=== PATIENT | female | born 1945 | race Caucasian/White ===

== ENCOUNTER 2016-12-21 16:20 | Emergency (ER) | payer BC ==
[2016-12-21 16:28] VITALS: BP 133/63
--- NOTE | 2017-01-15 15:21 | UC ---
Neha Jacob Rebecca, scribed for Karla Nam MD on 12/21/16 at 1800 . Upper Extremity HPI - HPI Summary HPI Summary: Pt is a 71 y/o F who presents to [facility] c/o RUE bruising s/p injury. 4-5 days ago she was gardening and fell, hitting her R forearm on either a big root or rock. Pain is currently moderate, ranked 7/10 and characterized as soreness. Sx aggravated and alleviated by nothing. Denies hip or abdominal pain. Reports she typically bruises easily and has since she was a teenager. Does not take blood thinners or Vitamin E, A or K. Confirms that in the past year she has had an extensive work up with her PCP including a stress test and thyroid scan. Has an appt with her PCP on Saturday (3 days from today). - History of Current Complaint Chief Complaint: UCUpperExtremity Stated Complaint: RT ARM INJURY FROM FALL Time Seen by Provider: 12/21/16 17:58 Hx Obtained From: Patient ?: No Onset/Duration: Lasting Days - 4-5 days, Still Present Severity Currently: Moderate Pain Intensity: 7 Pain Scale Used: 0-10 Numeric Location Of Pain: Is Discrete @ - R forearm Aggravating Factor(s): Nothing Alleviating Factor(s): Nothing Associated Signs And Symptoms: Positive: Bruising Related History: Dominant Hand Right - Allergies/Home Medications Allergies/Adverse Reactions: Allergies Allergy/AdvReac Type Severity Reaction Status Date / Time Erythromycin Allergy Altered Verified 07/14/15 06:25 Mental Status ENVIRONMENTAL Allergy Unknown Uncoded 07/14/15 06:25 Reaction Details Home Medications: Home Medications Levothyroxine TAB* [Synthroid TAB*] 25 mcg PO 0800 12/21/16 [History Confirmed 12/21/16] PMH/Surg Hx/FS Hx/Imm Hx - Additional Past Medical History Additional PMH: Hx Pseudoexfoliation syndrome Previously Healthy: Yes Endocrine History: Hypothyroidism - Surgical History Surgical History: Yes Surgery Procedure, Year, and Place: 2006 LEFT ANKLE ORIF, [facility] [place]-. 2012 COLONOSCOPY, [facility] [place]. 2014-LEFT WRIST ORIF-. 2017 - LEFT EYE SURGERY - [place] - Family History Known Family History: Positive: Other - Dementia (mother) - Social History Alcohol Use: Daily Alcohol Amount: WEEKENDS Substance Use Type: None Smoking Status (MU): Former Smoker Type: Cigarettes Amount Used/How Often: LESS THAN 1 PPD X 15 YEARS ON AND OFF Length of Time of Smoking/Using Tobacco: 15 YEARS ON AND OFF Have You Smoked in the Last Year: No When Did the Patient Quit Smoking/Using Tobacco: 1987 Review of Systems Constitutional: Negative Skin: Bruising - R forearm with moderate associated pain Eyes: Negative ENT: Negative Respiratory: Negative Cardiovascular: Negative Gastrointestinal: Negative Genitourinary: Negative Motor: Negative Neurovascular: Negative Musculoskeletal: Negative Neurological: Negative Psychological: Negative All Other Systems Reviewed And Are Negative: Yes Physical Exam Triage Information Reviewed: Yes Appearance: Well-Nourished - sitting up. NAD. Vital Signs: Initial Vital Signs Temp 98.6 F 12/21/16 16:24 Pulse 74 12/21/16 16:24 Resp 18 12/21/16 16:24 BP 133/63 12/21/16 16:24 Pulse Ox 97 12/21/16 16:24 Vital Signs Reviewed: Yes Eye Exam: Normal ENT Exam: Normal Dental Exam: Normal Neck exam: Normal Respiratory Exam: Normal Cardiovascular Exam: Normal Abdominal Exam: Normal Musculoskeletal Exam: Other - R forearm +ecchymosis. No wilmer bony tenderness nor deformity. Distal r/u pulses 2+equal. From shoulder, elbow, wrist, hand. Although forearm painful with movement. Neurological Exam: Normal Psychological Exam: Normal Skin Exam: Normal - Additional Comments Appearance: Well-Nourished Eye Exam: Normal ENT Exam: Normal Respiratory Exam: Normal, no dyspnea, no tachypnea, normal respiratory rate Cardiovascular Exam: Normal Cardiovascular: Heart rate regular, good general skin color, good capillary refill Abdominal Exam: Normal Abdomen Description: Nontender, No Organomegaly, Soft Bowel Sounds: Present Musculoskeletal Exam: Normal Musculoskeletal: Strength Intact Neurological Exam: Normal: nonfocal, grossly intact Psychological Exam: Normal: conversing easily and appropriately Skin Exam: Hematoma that is 5 cm by 5 cm and an irregular purple-william yellow brown region of ecchymosis that is 30 cm in length by 11 cm. Bruises on both upper arms. Upper Extremity Course/Dx - Course Course Of Treatment: D/w s/sx and coa with Rai Latanya. I do not think radiology studies indicated at this time, d/w pt. Sling offered as needed for comfort. She plans to f/u with pcp in the near future, and will have blood work. Ms. Pelaez was given the opportunity to ask several insightful questions, to which I answered to the best of my ability. - Differential Dx/Diagnosis Provider Diagnoses: R forearm eccymosis and hematoma 2/2 trauma Discharge - Discharge Plan Condition: Stable Disposition: HOME Patient Education Materials: Hematoma (ED), Ecchymosis (ED) Referrals: Sosa Macias MD [Medical Doctor] - Ngozi Mckay NP [Primary Care Provider] - Additional Instructions: Avoid dependant edema - elevate the right arm and continue to move the fingers. Sling as needed for comfort. Follow up primary care provider - early next week as planned. The documentation as recorded by the Neha lee Rebecca accurately reflects the service I personally performed and the decisions made by me, Karla Nam MD.
== END 2016-12-21 18:53 | disposition home or self-care (01) ==
LOC: UCEAST 16:20
DX: S50.11XA Contusion of right forearm, initial encounter (principal); W18.00XA Striking against unspecified object with subsequent fall, initial encounter; Y93.H2 Activity, gardening and landscaping; Y92.89 Other specified places as the place of occurrence of the external cause; Z88.1 Allergy status to other antibiotic agents; E03.9 Hypothyroidism, unspecified; Z87.891 Personal history of nicotine dependence
CPT/HCPCS: 99212; G0463

== ENCOUNTER 2020-02-15 19:12 | Inpatient (IN) ==
[2020-02-15] MEDS ORDERED: NS 0.9% 1000 ml BAG 1,000 ML IV ONE (19:44)
[2020-02-15] MEDS ORDERED: Piperacillin/Tazobac ADVAN 3.375 GM in NS 0.9% 100 ml BAG 100 ML IVPB ONE (19:58)
[2020-02-15 20:05] LABS: ABS Lymphocytes 2.1 10^3/ul (1.0-4.8); ABS Monocytes 0.8 10^3/ul (0-0.8); ABS Neutrophils 6.2 10^3/ul (1.5-7.7); Eosinophil % 0.5 %; Hematocrit 27 % (35-47); Hemoglobin 9.1 g/dL (12.0-16.0); Lymphocyte % 22.6 %; Mean Corpuscular HGB Conc 34 g/dL (31-36); Mean Corpuscular Hemoglobin 32 pg (27-31); Mean Corpuscular Volume 95 fL (80-97); Mean Platelet Volume 7.8 fL (7.4-10.4); Platelet Count 174 10^3/uL (150-450); Red Blood Count 2.84 10^6 /uL (3.70-4.87); Red Cell Distribution Width 14 % (10-15); White Blood Count 9.2 10^3/uL (3.5-10.8)
[2020-02-15 20:21] LABS: ALT 33 U/L (7-52); Albumin 2.9 g/dL (3.2-5.2); Albumin/Globulin Ratio 0.4 (1-3); Alkaline Phosphatase 56 U/L (34-104); BUN/Creatinine Ratio 13.3 (8-20); Blood Urea Nitrogen 14 mg/dL (6-24); CO2 Carbon Dioxide 26 mmol/L (22-32); Calcium 8.6 mg/dL (8.6-10.3); Chloride 98 mmol/L (101-111); EGFR African American 61.7 (>60); Globulin 6.5 g/dL (2-4); Glucose 111 mg/dL (70-100); Lipase 17 U/L (11.0-82.0); Sodium 127 mmol/L (135-145); Total Protein 9.4 g/dL (6.4-8.9)
[2020-02-15 20:39] LABS: Anion Gap 3 mmol/L (2-11)
[2020-02-15] MEDS ORDERED: Zosyn per Pharmacy NOTE FOLLOW UP SCH (22:00)
[2020-02-16] MEDS ORDERED: fentaNYL 100 mcg/2 ml 50 MCG/ML VIAL IV SCH
[2020-02-16] MEDS: NS 0.9% 1000 ml BAG 1,000 ML IV SCH ×2 (00:16→10:29)
[2020-02-16] MEDS: ZOSYN 3.375 GM Q8H per EXTENDED INFUSION IV SCH ×3 (00:41→15:11)
[2020-02-16 05:55] LABS: ABS Lymphocytes 2.2 10^3/ul (1.0-4.8); ABS Monocytes 0.7 10^3/ul (0-0.8); ABS Neutrophils 5.1 10^3/ul (1.5-7.7); Eosinophil % 0.4 %; Hematocrit 24 % (35-47); Hemoglobin 8.6 g/dL (12.0-16.0); Lymphocyte % 27.8 %; Mean Corpuscular HGB Conc 35 g/dL (31-36); Mean Corpuscular Hemoglobin 33 pg (27-31); Mean Corpuscular Volume 94 fL (80-97); Mean Platelet Volume 7.4 fL (7.4-10.4); Platelet Count 157 10^3/uL (150-450); Red Blood Count 2.59 10^6 /uL (3.70-4.87); Red Cell Distribution Width 15 % (10-15)
[2020-02-16 06:11] LABS: C Reactive Protein 54.62 mg/L (<8.01); Calcium 7.8 mg/dL (8.6-10.3); EGFR African American 65.2 (>60); EGFR Non-African American 53.9 (>60); Potassium 3.9 mmol/L (3.5-5.0)
[2020-02-16 07:01] LABS: Urine Appearance Clear; Urine Bilirubin Negative (Negative); Urine Blood Negative (Negative); Urine Color Straw; Urine Glucose Negative (Negative); Urine Ketones Negative (Negative); Urine Nitrite Negative (Negative); Urine Protein Negative (Negative); Urine Specific Gravity 1.023 (1.010-1.030); Urine Urobilinogen Negative (Negative)
[2020-02-16] MEDS ORDERED: Influenza VAC *QUAD* 2020-21* 0.5 ML SYRINGE IM ONE (09:00)
[2020-02-16 11:30] LABS: INR 1.49 (0.82-1.09)
[2020-02-17] MEDS: ZOSYN 3.375 GM Q8H per EXTENDED INFUSION IV SCH ×2 (00:03→08:33)
[2020-02-17] MEDS: NS 0.9% 1000 ml BAG 1,000 ML IV SCH (00:12)
[2020-02-17] MEDS ORDERED: NS 0.9% 100 ml BAG 100 ML ONE (08:26)
[2020-02-17] MEDS ORDERED: Influenza VAC *QUAD* 2020-21* 0.5 ML SYRINGE IM ONE (09:00)
[2020-02-17 15:26] VITALS: BP 110/83
== END 2020-02-17 15:35 | disposition home or self-care (01) | DRG 248 ==
LOC: ED 19:12 → SSU 21:46
PROVIDERS: ADMIT Surgery; ATTEND Surgery

== ENCOUNTER 2020-11-02 22:30 | Inpatient (IN) ==
[2020-11-02] MEDS ORDERED: NS 0.9% 1000 ml BAG 1,000 ML IV ONE (23:04)
[2020-11-03 00:18] LABS: ABS Eosinophils 0.2 10^3/ul (0-0.6); ABS Lymphocytes 0.7 10^3/ul (1.0-4.8); ABS Monocytes 0.7 10^3/ul (0-0.8); ABS Neutrophils 2.4 10^3/ul (1.5-7.7); Eosinophil % 5.6 %; Hematocrit 35 % (35-47); Hemoglobin 12.1 g/dL (12.0-16.0); Lymphocyte % 16.3 %; Mean Corpuscular HGB Conc 34 g/dL (31-36); Mean Corpuscular Hemoglobin 31 pg (27-31); Mean Corpuscular Volume 90 fL (80-97); Mean Platelet Volume 9.7 fL (7.4-10.4); Platelet Count 170 10^3/uL (150-450); Red Blood Count 3.92 10^6 /uL (3.70-4.87); Red Cell Distribution Width 16 % (10-15)
[2020-11-03 00:42] LABS: ALT 30 U/L (7-52); AST 28 U/L (13-39); Albumin 3.9 g/dL (3.2-5.2); Albumin/Globulin Ratio 1.9 (1-3); Alkaline Phosphatase 48 U/L (35-149); Anion Gap 10 mmol/L (2-11); Blood Urea Nitrogen 24 mg/dL (6-24); CO2 Carbon Dioxide 23 mmol/L (22-32); Calcium 9.3 mg/dL (8.6-10.3); Chloride 101 mmol/L (101-111); EGFR African American 81.8 (>60); EGFR Non-African American 67.6 (>60); Globulin 2.1 g/dL (2-4); Glucose 101 mg/dL (70-100); Magnesium 1.4 mg/dL (1.9-2.7); Potassium 3.2 mmol/L (3.5-5.0); Sodium 134 mmol/L (135-145)
[2020-11-03 00:50] LABS: Troponin I 0.03 ng/mL (<0.03)
[2020-11-03] MEDS ORDERED: Magnesium Sulfate 2 gm BAG 2 GM/50 ML BAG IVPB ONE (00:51)
[2020-11-03] MEDS ORDERED: Potassium Chlor 20 meq TAB.ER PO ONE (01:22)
[2020-11-03] MEDS ORDERED: Magnesium Hydroxide LIQ 30 ML UDC PO PRN (04:24)
[2020-11-03] MEDS ORDERED: NS 0.9% 1000 ml BAG 1,000 ML IV SCH (04:30)
[2020-11-03] MEDS ORDERED: Senna TAB 8.6 mg TAB PO PRN (04:39)
[2020-11-03 04:51] LABS: C Reactive Protein 5.74 mg/L (<8.01); Creatine Kinase 58 U/L (10-223)
[2020-11-03 05:04] LABS: Phosphorus 2.9 mg/dL (2.5-5.0)
[2020-11-03 08:27] LABS: Indirect Bilirubin 1.7 mg/dL (0.3-1.0)
[2020-11-03] MEDS: Enoxaparin 40 MG/0.4 ML SYR SUBCUT SCH (09:01)
[2020-11-03 09:40] LABS: Troponin I 0.04 ng/mL (<0.03)
[2020-11-03 10:02] LABS: Free T4 1.15 ng/dL (0.61-1.12)
[2020-11-03 11:45] LABS: Urine Appearance Clear; Urine Bilirubin Negative (Negative); Urine Blood Negative (Negative); Urine Color Yellow; Urine Glucose Negative (Negative); Urine Ketones 1+ (Negative); Urine Nitrite Negative (Negative); Urine Protein Negative (Negative); Urine Specific Gravity 1.012 (1.002-1.030); Urine Urobilinogen Negative (Negative)
[2020-11-03 11:49] LABS: Urine Bacteria 1+ (Absent); Urine Red Blood Cell Absent (Absent); Urine Squamous Epithelial Cell Present (Absent); Urine White Blood Cell 1+(6-10/hpf) (Absent)
[2020-11-03 13:53] LABS: Troponin I 0.03 ng/mL (<0.03)
[2020-11-03] MEDS ORDERED: Gadoteridol (CONTRAST) 279.3 MG/ML 10 ML IV ONE (20:40)
[2020-11-04 07:25] LABS: Albumin/Globulin Ratio 1.9 (1-3); Calcium 8.3 mg/dL (8.6-10.3); EGFR African American 106.9 (>60); EGFR Non-African American 88.4 (>60); Globulin 1.6 g/dL (2-4); Hematocrit 28 % (35-47); Hemoglobin 9.7 g/dL (12.0-16.0); Mean Corpuscular HGB Conc 35 g/dL (31-36); Mean Corpuscular Hemoglobin 31 pg (27-31); Mean Corpuscular Volume 91 fL (80-97); Mean Platelet Volume 9.3 fL (7.4-10.4); Platelet Count 162 10^3/uL (150-450); Potassium 3.3 mmol/L (3.5-5.0); Red Blood Count 3.11 10^6 /uL (3.70-4.87); Red Cell Distribution Width 16 % (10-15); Total Bilirubin 1.6 mg/dL (0.2-1.0); Total Protein 4.6 g/dL (6.4-8.9)
[2020-11-04] MEDS ORDERED: Potassium Chlor 20 meq TAB.ER PO ONE (08:14)
[2020-11-04 08:21] LABS: ABS Neutrophils 0.9 10^3/ul (1.5-7.7)
[2020-11-04 08:22] LABS: ABS Eosinophils 0.2 10^3/ul (0-0.6); ABS Lymphocytes 0.5 10^3/ul (1.0-4.8); ABS Monocytes 0.3 10^3/ul (0-0.8); Eosinophil % 11.2 %; Lymphocyte % 25.1 %
[2020-11-04 08:42] LABS: Magnesium 1.6 mg/dL (1.9-2.7)
[2020-11-04] MEDS: Enoxaparin 40 MG/0.4 ML SYR SUBCUT SCH (09:28)
[2020-11-04 12:19] VITALS: BP 108/56
== END 2020-11-04 14:00 | disposition home or self-care (01) | DRG 948 ==
LOC: ED 22:30 → EDHOLD 11-03 04:24 → MED 11-03 16:42
PROVIDERS: ADMIT Internal Medicine; ATTEND Student in an Organized Health Care Education/Training Program

== ENCOUNTER 2022-02-01 21:40 | Inpatient (IN) ==
[2022-02-01] MEDS ORDERED: HYDROcodone/ACETAMIN 5/325 mg TAB PO ONE (21:54)
[2022-02-02 00:42] LABS: Hematocrit 34 % (35-47); Hemoglobin 11.3 g/dL (12.0-16.0); Mean Corpuscular HGB Conc 34 g/dL (31-36); Mean Corpuscular Hemoglobin 29 pg (27-31); Mean Corpuscular Volume 87 fL (80-97); Mean Platelet Volume 7.3 fL (7.4-10.4); Platelet Count 163 10^3/uL (150-450); Red Blood Count 3.86 10^6 /uL (3.70-4.87); Red Cell Distribution Width 15 % (10-15); White Blood Count 5.8 10^3/uL (3.5-10.8)
[2022-02-02 01:42] LABS: Albumin 3.9 g/dL (3.2-5.2); Calcium 9.3 mg/dL (8.6-10.3); Direct Bilirubin 0.2 mg/dL (0.03-0.18); Globulin 1.3 g/dL (2-4); Indirect Bilirubin 1.6 mg/dL (0.3-1.0); Potassium 3.7 mmol/L (3.5-5.0); Total Bilirubin 1.8 mg/dL (0.2-1.0); Total Protein 5.2 g/dL (6.4-8.9); eGFR CKD-EPI 62.9 (>60)
[2022-02-02] MEDS ORDERED: Heparin 5000 UNITS/ML 1 mL VIAL SUBCUT ONE (03:14)
[2022-02-02] MEDS ORDERED: fentaNYL 100 mcg/2 ml 50 MCG/ML VIAL IV SLOW PU PRN (03:41)
[2022-02-02] MEDS: NS 0.9% 1000 ml BAG 1,000 ML IV SCH ×2 (04:30→23:32)
[2022-02-02] MEDS: Acetaminophen IV 1 GM/100ML 1,000 MG/100 ML BAG IV SCH ×3 (04:30→23:48)
[2022-02-02 06:00] LABS: INR 1.19 (0.89-1.11)
[2022-02-02] MEDS: Calcium Carb (TUMS) 500 mg CHEW TAB PO SCH (09:08)
[2022-02-02] MEDS: Cholecalciferol (VIT D3) 1,000 unit TAB PO SCH (09:08)
[2022-02-02] MEDS: LENALIDOMIDE 2.5 MG PO SCH (09:09)
[2022-02-02] MEDS: Latanoprost 0.005% 2.5 ml BTL RIGHT EYE SCH (23:48)
[2022-02-03] MEDS: Acetaminophen IV 1 GM/100ML 1,000 MG/100 ML BAG IV SCH ×3 (05:20→22:05)
[2022-02-03] MEDS: Cholecalciferol (VIT D3) 1,000 unit TAB PO SCH (07:47)
[2022-02-03] MEDS: Calcium Carb (TUMS) 500 mg CHEW TAB PO SCH (07:47)
[2022-02-03] MEDS: Aspirin EC 81 mg TAB.EC (enteric coated) PO SCH (07:47)
[2022-02-03] MEDS: LENALIDOMIDE 2.5 MG PO SCH (07:48)
[2022-02-03] MEDS ORDERED: fentaNYL 100 mcg/2 ml 50 MCG/ML VIAL ONE (08:33)
[2022-02-03] MEDS ORDERED: Ondansetron 4 mg VIAL 2 MG/ML 2 ml VIAL ONE (08:33)
[2022-02-03] MEDS ORDERED: Phenylephrine 40 mcg/mL 10mL (400mcg) SYRINGE ONE (08:33)
[2022-02-03] MEDS ORDERED: Lidocaine 2% PF 5 ML VIAL ONE (08:33)
[2022-02-03] MEDS ORDERED: Propofol 10 MG/ML 20 ML BTL ONE (08:33)
[2022-02-03] MEDS ORDERED: Dexamethasone IV 4 MG/ML VIAL 1 ml VIAL ONE (08:33)
[2022-02-03] MEDS ORDERED: Midazolam 5 mg/5 ml VIAL 1 mg/ml 5 ml VIAL (5 mg) ONE (08:34)
[2022-02-03] MEDS ORDERED: Bupivacaine 0.5% SDV PF 30ML VIAL ONE (09:03)
[2022-02-03] MEDS ORDERED: Bupivacaine 0.25% SDV 30 ML ONE (09:03)
[2022-02-03 12:44] LABS: Urine Appearance Clear; Urine Bilirubin Negative (Negative); Urine Blood Negative (Negative); Urine Color Straw; Urine Glucose Negative (Negative); Urine Ketones 1+ (15mg/dL) (Negative); Urine Protein Negative (Negative); Urine Specific Gravity 1.015 (1.005-1.030); Urine pH 5.5 (5.0-9.0)
[2022-02-03 12:45] LABS: Urine Nitrite Negative (Negative); Urine Urobilinogen 0.2 (Negative) (Negative)
[2022-02-03] MEDS: NS 0.9% 1000 ml BAG 1,000 ML IV SCH (14:29)
[2022-02-03 14:33] LABS: ABS Eosinophils 0.2 10^3/ul (0-0.6); ABS Lymphocytes 0.7 10^3/ul (1.0-4.8); ABS Monocytes 0.3 10^3/ul (0-0.8); ABS Neutrophils 3.3 10^3/ul (1.5-7.7); Eosinophil % 4.3 %; Hematocrit 33 % (35-47); Hemoglobin 11.5 g/dL (12.0-16.0); Lymphocyte % 14.7 %; Mean Corpuscular HGB Conc 35 g/dL (31-36); Mean Corpuscular Hemoglobin 31 pg (27-31); Mean Corpuscular Volume 88 fL (80-97); Mean Platelet Volume 7.4 fL (7.4-10.4); Platelet Count 143 10^3/uL (150-450); Red Blood Count 3.73 10^6 /uL (3.70-4.87); Red Cell Distribution Width 15 % (10-15); White Blood Count 4.5 10^3/uL (3.5-10.8)
[2022-02-03 14:56] LABS: Albumin 3.4 g/dL (3.2-5.2); Albumin/Globulin Ratio 2.6 (1-3); Calcium 8.2 mg/dL (8.6-10.3); Globulin 1.3 g/dL (2-4); Potassium 3.5 mmol/L (3.5-5.0); Total Bilirubin 1.7 mg/dL (0.2-1.0); Total Protein 4.7 g/dL (6.4-8.9); eGFR CKD-EPI 89.4 (>60)
[2022-02-03] MEDS ORDERED: Heparin 5000 UNITS/ML 1 mL VIAL SUBCUT SCH ×2 (15:00→18:47)
[2022-02-03] MEDS: Latanoprost 0.005% 2.5 ml BTL RIGHT EYE SCH (20:41)
[2022-02-04] MEDS: NS 0.9% 1000 ml BAG 1,000 ML IV SCH ×3 (01:01→14:15)
[2022-02-04] MEDS: Acetaminophen IV 1 GM/100ML 1,000 MG/100 ML BAG IV SCH ×3 (05:39→19:12)
[2022-02-04] MEDS ORDERED: Lactated Ringers 1000 ml BAG 1,000 ML IV SCH (06:00)
[2022-02-04] MEDS ORDERED: fentaNYL 100 mcg/2 ml 50 MCG/ML VIAL ONE (07:51)
[2022-02-04] MEDS ORDERED: Ketamine HCL 50 mg/ml 10 ml VIAL (500 MG) ONE (07:51)
[2022-02-04] MEDS ORDERED: Midazolam 2 mg/2 ml VIAL 1 mg/ml 2 ml VIAL (2 mg) ONE (07:51)
[2022-02-04] MEDS ORDERED: Rocuronium 50 mg VIAL 10 mg/ml 5 ml VIAL (50 mg) ONE ×2 (07:54→10:24)
[2022-02-04] MEDS: Cholecalciferol (VIT D3) 1,000 unit TAB PO SCH (08:01)
[2022-02-04] MEDS: Calcium Carb (TUMS) 500 mg CHEW TAB PO SCH (08:01)
[2022-02-04] MEDS: Aspirin EC 81 mg TAB.EC (enteric coated) PO SCH (08:01)
[2022-02-04] MEDS: LENALIDOMIDE 2.5 MG PO SCH (08:02)
[2022-02-04] MEDS ORDERED: ceFAZolin 2 GM in NS PREMIX 2 GM/100 ML BAG IVPB ONE (08:07)
[2022-02-04] MEDS ORDERED: Ondansetron 4 mg VIAL 2 MG/ML 2 ml VIAL ONE (09:47)
[2022-02-04] MEDS ORDERED: Succinylcholine 200 mg VIAL 20 mg/ml 10 ml VIAL (200 mg) ONE (09:47)
[2022-02-04] MEDS ORDERED: Propofol 10 MG/ML 20 ML BTL ONE (09:47)
[2022-02-04] MEDS ORDERED: Lidocaine 2% PF 5 ML VIAL ONE (09:47)
[2022-02-04] MEDS ORDERED: Acetaminophen IV 1 GM/100ML 1,000 MG/100 ML BAG IV ONE (09:47)
[2022-02-04] MEDS ORDERED: Dexamethasone IV 4 MG/ML VIAL 1 ml VIAL ONE (09:47)
[2022-02-04] MEDS ORDERED: HYDROmorphone 1 MG/1 ML SYRINGE IV PRN (11:49)
[2022-02-04] MEDS ORDERED: Naloxone 0.4 mg VIAL 0.4 mg/ml 1 ml VIAL IV PRN (11:49)
[2022-02-04] MEDS ORDERED: Magnesium Hydroxide LIQ 30 ML UDC PO PRN (12:00)
[2022-02-04 15:56] LABS: ABS Lymphocytes 0.3 10^3/ul (1.0-4.8); ABS Monocytes 0.3 10^3/ul (0-0.8); ABS Neutrophils 6.2 10^3/ul (1.5-7.7); Eosinophil % 0.1 %; Hematocrit 30 % (35-47); Hemoglobin 10.3 g/dL (12.0-16.0); Mean Corpuscular HGB Conc 35 g/dL (31-36); Mean Corpuscular Hemoglobin 31 pg (27-31); Mean Corpuscular Volume 89 fL (80-97); Mean Platelet Volume 7.7 fL (7.4-10.4); Platelet Count 128 10^3/uL (150-450); Red Blood Count 3.34 10^6 /uL (3.70-4.87); Red Cell Distribution Width 15 % (10-15); White Blood Count 6.8 10^3/uL (3.5-10.8)
[2022-02-04 16:25] LABS: Albumin 3.2 g/dL (3.2-5.2); Albumin/Globulin Ratio 2.7 (1-3); Calcium 7.6 mg/dL (8.6-10.3); Globulin 1.2 g/dL (2-4); Potassium 3.7 mmol/L (3.5-5.0); Total Bilirubin 0.8 mg/dL (0.2-1.0); Total Protein 4.4 g/dL (6.4-8.9); eGFR CKD-EPI 88.5 (>60)
[2022-02-04] MEDS: ceFAZolin 1 GM X 3 DOSES POST-OP Q8H (AddVan) IVPB SCH (17:45)
[2022-02-04] MEDS: Latanoprost 0.005% 2.5 ml BTL RIGHT EYE SCH (20:53)
[2022-02-04] MEDS ORDERED: Heparin 5000 UNITS/ML 1 mL VIAL SUBCUT SCH (22:00)
[2022-02-05] MEDS: ceFAZolin 1 GM X 3 DOSES POST-OP Q8H (AddVan) IVPB SCH ×2 (00:47→10:00)
[2022-02-05] MEDS: NS 0.9% 1000 ml BAG 1,000 ML IV SCH (00:51)
[2022-02-05] MEDS: Acetaminophen IV 1 GM/100ML 1,000 MG/100 ML BAG IV SCH ×2 (02:28→11:17)
[2022-02-05] MEDS: LENALIDOMIDE 2.5 MG PO SCH (07:50)
[2022-02-05] MEDS: Aspirin EC 81 mg TAB.EC (enteric coated) PO SCH (07:51)
[2022-02-05] MEDS: Cholecalciferol (VIT D3) 1,000 unit TAB PO SCH (07:52)
[2022-02-05] MEDS: Calcium Carb (TUMS) 500 mg CHEW TAB PO SCH (12:10)
[2022-02-05] MEDS: Latanoprost 0.005% 2.5 ml BTL RIGHT EYE SCH (20:40)
[2022-02-06 05:59] LABS: ABS Eosinophils 0.2 10^3/ul (0-0.6); ABS Lymphocytes 1.2 10^3/ul (1.0-4.8); ABS Monocytes 0.7 10^3/ul (0-0.8); ABS Neutrophils 3.2 10^3/ul (1.5-7.7); Eosinophil % 3.5 %; Hematocrit 20 % (35-47); Hemoglobin 6.7 g/dL (12.0-16.0); Lymphocyte % 22.6 %; Mean Corpuscular HGB Conc 33 g/dL (31-36); Mean Corpuscular Hemoglobin 29 pg (27-31); Mean Corpuscular Volume 88 fL (80-97); Mean Platelet Volume 7.3 fL (7.4-10.4); Platelet Count 151 10^3/uL (150-450); Red Blood Count 2.29 10^6 /uL (3.70-4.87); Red Cell Distribution Width 15 % (10-15); White Blood Count 5.2 10^3/uL (3.5-10.8)
[2022-02-06 06:16] LABS: Albumin 2.6 g/dL (3.2-5.2); Albumin/Globulin Ratio 2.6 (1-3); Calcium 7.3 mg/dL (8.6-10.3); Potassium 3.3 mmol/L (3.5-5.0); Total Bilirubin 0.7 mg/dL (0.2-1.0); Total Protein 3.6 g/dL (6.4-8.9); eGFR CKD-EPI 88.8 (>60)
[2022-02-06 08:03] LABS: Magnesium 1.3 mg/dL (1.9-2.7)
[2022-02-06] MEDS ORDERED: Magnesium Sulf 4 GM/100 ML IV 4,000 MG/100 ML BAG IVPB ONE (08:41)
[2022-02-06] MEDS ORDERED: Potassium Chloride LIQUID 20 MEQ/15 ML LIQUID PO ONE (10:00)
[2022-02-06] MEDS: Cholecalciferol (VIT D3) 1,000 unit TAB PO SCH (10:41)
[2022-02-06] MEDS: Aspirin EC 81 mg TAB.EC (enteric coated) PO SCH (10:42)
[2022-02-06] MEDS: Polyethylene Glycol 3350 17 GM PACKET PO SCH (10:42)
[2022-02-06] MEDS: LENALIDOMIDE 2.5 MG PO SCH (10:44)
[2022-02-06] MEDS: Calcium Carb (TUMS) 500 mg CHEW TAB PO SCH (13:51)
[2022-02-06] MEDS ORDERED: Potassium Chlor 20 meq TAB.ER PO ONE (14:00)
[2022-02-06 16:05] LABS: Hematocrit 21 % (35-47)
[2022-02-06 18:05] LABS: Folate 5.28 ng/mL (5.90-24.80)
[2022-02-06 18:05] LABS: Corrected Retic Count 0.6 % (0.5-1.5); Hematocrit for Retic CNT 21 % (35-47); Immature Retic Fraction 0.39; RBC Retic Count 2.39 10^6/uL (3.70-4.87)
[2022-02-06 18:42] LABS: Ferritin 130.2 ng/mL (11-307)
[2022-02-06] MEDS: Latanoprost 0.005% 2.5 ml BTL RIGHT EYE SCH (21:15)
[2022-02-07 05:51] LABS: ABS Eosinophils 0.2 10^3/ul (0-0.6); ABS Lymphocytes 1.3 10^3/ul (1.0-4.8); ABS Monocytes 0.6 10^3/ul (0-0.8); Eosinophil % 4.6 %; Hematocrit 21 % (35-47); Hemoglobin 6.9 g/dL (12.0-16.0); Lymphocyte % 30.8 %; Mean Corpuscular HGB Conc 33 g/dL (31-36); Mean Corpuscular Hemoglobin 29 pg (27-31); Mean Corpuscular Volume 88 fL (80-97); Nucleated Red Blood Cells % 0.1; Platelet Count 160 10^3/uL (150-450); Red Blood Count 2.34 10^6 /uL (3.70-4.87); Red Cell Distribution Width 15 % (10-15); White Blood Count 4.1 10^3/uL (3.5-10.8)
[2022-02-07 06:30] LABS: Calcium 7.6 mg/dL (8.6-10.3); Magnesium 1.8 mg/dL (1.9-2.7); eGFR CKD-EPI 91.1 (>60)
[2022-02-07] MEDS: Cholecalciferol (VIT D3) 1,000 unit TAB PO SCH (09:48)
[2022-02-07] MEDS: Aspirin EC 81 mg TAB.EC (enteric coated) PO SCH (09:48)
[2022-02-07] MEDS: Polyethylene Glycol 3350 17 GM PACKET PO SCH (09:49)
[2022-02-07] MEDS: LENALIDOMIDE 2.5 MG PO SCH (09:49)
[2022-02-07] MEDS: Calcium Carb (TUMS) 500 mg CHEW TAB PO SCH (12:10)
[2022-02-07 13:05] LABS: Hematocrit 22 % (35-47); Hemoglobin 7.2 g/dL (12.0-16.0)
[2022-02-07] MEDS: Latanoprost 0.005% 2.5 ml BTL RIGHT EYE SCH (20:45)
[2022-02-08 05:21] LABS: ABS Eosinophils 0.1 10^3/ul (0-0.6); ABS Lymphocytes 1.2 10^3/ul (1.0-4.8); ABS Monocytes 0.5 10^3/ul (0-0.8); ABS Neutrophils 1.8 10^3/ul (1.5-7.7); Eosinophil % 3.7 %; Hematocrit 21 % (35-47); Hemoglobin 6.7 g/dL (12.0-16.0); Lymphocyte % 31.9 %; Mean Corpuscular HGB Conc 33 g/dL (31-36); Mean Corpuscular Hemoglobin 29 pg (27-31); Mean Corpuscular Volume 89 fL (80-97); Mean Platelet Volume 7.2 fL (7.4-10.4); Platelet Count 178 10^3/uL (150-450); Red Cell Distribution Width 15 % (10-15); White Blood Count 3.6 10^3/uL (3.5-10.8)
[2022-02-08 05:41] LABS: Calcium 7.9 mg/dL (8.6-10.3); Magnesium 1.6 mg/dL (1.9-2.7); Potassium 4.1 mmol/L (3.5-5.0); eGFR CKD-EPI 91.1 (>60)
[2022-02-08] MEDS ORDERED: Iron Sucrose 300 MG in NS 0.9% 100 ml BAG 95 ML IVPB SCH (09:00)
[2022-02-08] MEDS: Cholecalciferol (VIT D3) 1,000 unit TAB PO SCH (11:25)
[2022-02-08] MEDS: Aspirin EC 81 mg TAB.EC (enteric coated) PO SCH (11:25)
[2022-02-08] MEDS: Polyethylene Glycol 3350 17 GM PACKET PO SCH (11:36)
[2022-02-08] MEDS ORDERED: Magnesium Sulfate IV 3 GM in NS 0.9% 100 ml BAG 100 ML IVPB ONE (13:44)
[2022-02-08] MEDS: Calcium Carb (TUMS) 500 mg CHEW TAB PO SCH (14:51)
[2022-02-08 17:22] LABS: Copper, S 86 mcg/dL (77-206)
[2022-02-08] MEDS: Latanoprost 0.005% 2.5 ml BTL RIGHT EYE SCH (21:53)
[2022-02-09 07:23] LABS: ABS Eosinophils 0.2 10^3/ul (0-0.6); ABS Lymphocytes 1.2 10^3/ul (1.0-4.8); ABS Monocytes 0.5 10^3/ul (0-0.8); ABS Neutrophils 1.4 10^3/ul (1.5-7.7); Eosinophil % 5.1 %; Hematocrit 21 % (35-47); Hemoglobin 6.9 g/dL (12.0-16.0); Lymphocyte % 36.5 %; Mean Corpuscular HGB Conc 33 g/dL (31-36); Mean Corpuscular Hemoglobin 30 pg (27-31); Mean Corpuscular Volume 90 fL (80-97); Mean Platelet Volume 6.5 fL (7.4-10.4); Nucleated Red Blood Cells % 0.2; Platelet Count 181 10^3/uL (150-450); Red Blood Count 2.31 10^6 /uL (3.70-4.87); Red Cell Distribution Width 16 % (10-15); White Blood Count 3.4 10^3/uL (3.5-10.8)
[2022-02-09] MEDS: Aspirin EC 81 mg TAB.EC (enteric coated) PO SCH (09:00)
[2022-02-09] MEDS: Cholecalciferol (VIT D3) 1,000 unit TAB PO SCH (09:00)
[2022-02-09] MEDS: Polyethylene Glycol 3350 17 GM PACKET PO SCH (09:00)
[2022-02-09] MEDS: Calcium Carb (TUMS) 500 mg CHEW TAB PO SCH (13:37)
[2022-02-09] MEDS: Latanoprost 0.005% 2.5 ml BTL RIGHT EYE SCH (21:15)
[2022-02-10 06:06] LABS: ABS Eosinophils 0.2 10^3/ul (0-0.6); ABS Lymphocytes 1.6 10^3/ul (1.0-4.8); ABS Monocytes 0.6 10^3/ul (0-0.8); ABS Neutrophils 2.2 10^3/ul (1.5-7.7); Eosinophil % 3.6 %; Hematocrit 24 % (35-47); Hemoglobin 7.7 g/dL (12.0-16.0); Lymphocyte % 34.5 %; Mean Corpuscular HGB Conc 33 g/dL (31-36); Mean Corpuscular Hemoglobin 29 pg (27-31); Mean Corpuscular Volume 90 fL (80-97); Mean Platelet Volume 7.1 fL (7.4-10.4); Nucleated Red Blood Cells % 0.1; Platelet Count 255 10^3/uL (150-450); Red Blood Count 2.61 10^6 /uL (3.70-4.87); Red Cell Distribution Width 16 % (10-15); White Blood Count 4.6 10^3/uL (3.5-10.8)
[2022-02-10 06:25] LABS: Calcium 8.5 mg/dL (8.6-10.3); Magnesium 1.6 mg/dL (1.9-2.7); Potassium 4.1 mmol/L (3.5-5.0); eGFR CKD-EPI 80.2 (>60)
[2022-02-10] MEDS ORDERED: Magnesium Sulfate IV 3 GM in NS 0.9% 100 ml BAG 100 ML IVPB ONE (07:53)
[2022-02-10] MEDS: Cholecalciferol (VIT D3) 1,000 unit TAB PO SCH (09:20)
[2022-02-10] MEDS: Aspirin EC 81 mg TAB.EC (enteric coated) PO SCH (09:20)
[2022-02-10] MEDS: Polyethylene Glycol 3350 17 GM PACKET PO SCH (09:30)
[2022-02-10] MEDS: Calcium Carb (TUMS) 500 mg CHEW TAB PO SCH (12:06)
[2022-02-10] MEDS: Latanoprost 0.005% 2.5 ml BTL RIGHT EYE SCH (19:49)
[2022-02-11] MEDS: Cholecalciferol (VIT D3) 1,000 unit TAB PO SCH (08:59)
[2022-02-11] MEDS: Aspirin EC 81 mg TAB.EC (enteric coated) PO SCH (08:59)
[2022-02-11] MEDS: Polyethylene Glycol 3350 17 GM PACKET PO SCH (11:26)
[2022-02-11] MEDS: Iron Sucrose 200 MG in NS 0.9% 100 ml BAG 100 ML IVPB SCH (11:31)
[2022-02-11] MEDS: Calcium Carb (TUMS) 500 mg CHEW TAB PO SCH (12:53)
[2022-02-11] MEDS: Latanoprost 0.005% 2.5 ml BTL RIGHT EYE SCH (22:00)
[2022-02-12 05:55] LABS: ABS Eosinophils 0.1 10^3/ul (0-0.6); ABS Lymphocytes 1.4 10^3/ul (1.0-4.8); ABS Monocytes 0.4 10^3/ul (0-0.8); ABS Neutrophils 2.1 10^3/ul (1.5-7.7); Eosinophil % 3.6 %; Hematocrit 23 % (35-47); Hemoglobin 7.8 g/dL (12.0-16.0); Lymphocyte % 33.9 %; Mean Corpuscular HGB Conc 34 g/dL (31-36); Mean Corpuscular Hemoglobin 31 pg (27-31); Mean Corpuscular Volume 92 fL (80-97); Mean Platelet Volume 6.8 fL (7.4-10.4); Nucleated Red Blood Cells % 0.1; Platelet Count 309 10^3/uL (150-450); Red Blood Count 2.56 10^6 /uL (3.70-4.87); Red Cell Distribution Width 16 % (10-15); White Blood Count 4.1 10^3/uL (3.5-10.8)
[2022-02-12 06:18] LABS: Calcium 8.5 mg/dL (8.6-10.3); Magnesium 1.9 mg/dL (1.9-2.7); Potassium 4.2 mmol/L (3.5-5.0); eGFR CKD-EPI 74.3 (>60)
[2022-02-12 08:05] LABS: Rapid COVID-19 Molecular Undetected (Undetected)
[2022-02-12] MEDS: Polyethylene Glycol 3350 17 GM PACKET PO SCH (08:42)
[2022-02-12] MEDS: Cholecalciferol (VIT D3) 1,000 unit TAB PO SCH (08:43)
[2022-02-12] MEDS: Aspirin EC 81 mg TAB.EC (enteric coated) PO SCH (08:43)
[2022-02-12] MEDS: Iron Sucrose 200 MG in NS 0.9% 100 ml BAG 100 ML IVPB SCH (08:58)
[2022-02-12] MEDS: Calcium Carb (TUMS) 500 mg CHEW TAB PO SCH (11:22)
[2022-02-12 12:26] VITALS: BP 129/94
== END 2022-02-12 13:45 | DRG 522 ==
LOC: ED 21:40 → EDHOLD 02-02 03:10 → SUATTDRO 02-02 03:10 → EDHOLD 02-02 08:04 → SSU 02-02 08:34
PROVIDERS: ADMIT Internal Medicine; ATTEND Internal Medicine